=== PATIENT | male | born 1985 | race Caucasian/White ===

== ENCOUNTER → 2017-03-02 | Outpatient (CLI) | payer OTHER ==
[~2017-03-02] MED LIST: ACET-1311 PO
[2017-03-02 09:46] LABS: DAYS OF ABSTINENCE 3; METHOD OF COLLECTION MASTURBATION; SEMEN COLOR GRAY OR GRAY-WHITE (GRY/GRYWHTE); SEMEN TIME OF COLLECTION 820; TYPE OF SPECIMEN CONTAINER STERILE CUP
[2017-03-02 10:00] LABS: SPERM VIABILITY STAIN NOT INDICATED % (>58%)
== END | disposition home or self-care (01) ==
LOC: C.LAB 08:55
PROVIDERS: ATTEND Obstetrics & Gynecology
DX: Z31.41 Encounter for fertility testing (principal)